=== PATIENT | male | born 1975 | race Caucasian/White ===

== ENCOUNTER 2022-10-08 12:02 | Emergency (ER) | payer OTHER, SELFPAY ==
[2022-10-08 12:09] VITALS: BP 130/52; PULSE 70; RESP 18; TEMP 36.6; O2SAT 100
--- NOTE | 2022-10-08 12:14 | ED.EAR ---
HPI - Ear Problem General Chief complaint: Ear Stated complaint: Lt Ear Irritation Source: patient Mode of arrival: ambulatory Limitations: no limitations History of Present Illness HPI Narrative: 47-year-old male presented for complaint of left ear pressure worsening over the past few days. He states he feels like it feels clogged and needs to pop. Also states it has been affecting his equilibrium, feels occasional dizziness. He denies tinnitus, ear drainage, sinus congestion, nausea, vomiting, fevers or chills. Has not taken anything for symptoms or applied any drops. MD Complaint: ear pain Related Data Allergies Allergy/AdvReac Type Severity Reaction Status Date / Time morphine AdvReac Unknown Unknown Verified 10/08/22 12:11 Review of Systems Review of Systems: CONSTITUTIONAL: Denies malaise, chills, or fever. EYES: Denies visual changes, redness, or discharge. ENT: Denies rhinorrhea, congestion, sinus pain, and sore throat. Reports ear pain CARDIOVASCULAR: Denies chest pain, palpitations, or edema. RESPIRATORY: Denies cough or dyspnea. GASTROINTESTINAL: Denies abdominal pain, nausea, vomiting, diarrhea SKIN: Denies rash or itching. MUSCULOSKELETAL: Denies myalgia. NEUROLOGIC: Denies headache. All systems reviewed & are unremarkable except as noted in HPI and below PMFSH Past Medical History Medical History (Updated 10/08/22 @ 12:25 by Jacqueline To APRN) Actinic keratosis Cervical radiculopathy GERD (gastroesophageal reflux disease) Social History Social History Smoking status: Unknown if ever smoked Comments At time of signature, agree with nursing past medical, surgical, social and family history. There is no relevant family history pertinent to the presenting complaint Exam Narrative: GENERAL: Well-appearing, well-nourished, and in no acute distress. HEAD: Normocephalic EYES: conjunctivae clear ENT: Nares clear. Mucous membranes moist. TMs pearly goldstein with dull light reflex bilaterally, Left with clear effusion and bulging TM; no tragal tenderness. Oropharynx not erythematous without lesions. Tonsils not enlarged and without exudate, no drooling, no hoarseness, no trismus, uvula midline. NECK: Supple. No lymphadenopathy CHEST: Clear to auscultation, breath sounds equal. No wheezing, rhonchi, rales, or stridor. No respiratory distress, speaks in full sentences. HEART: Regular rate and rhythm. No murmur heard. SKIN: Warm, dry, no rash. NEURO: Alert and oriented x3. PSYCH: Normal mood and affect Course Course Emergency Course: Patient is aware of diagnosis, understands and agrees to treatment plan. Anticipatory guidance given. Patient agrees to follow-up as directed and is aware of reasons to seek care at the emergency department. Portions of this record may have been created with voice recognition software Level of Care: Express Care Visit Vital Signs Vital signs: Vital Signs Temperature 97.8 F 10/08/22 12:09 Pulse Rate 70 10/08/22 12:09 Respiratory Rate 18 10/08/22 12:09 Blood Pressure 130/52 L 10/08/22 12:09 Pulse Oximetry 100 10/08/22 12:09 Oxygen Delivery Room Air 10/08/22 12:09 Temperature 97.8 F 10/08/22 12:09 Pulse Rate 70 10/08/22 12:09 Respiratory Rate 18 10/08/22 12:09 Blood Pressure 130/52 L 10/08/22 12:09 Pulse Oximetry 100 10/08/22 12:09 Oxygen Delivery Room Air 10/08/22 12:09 Reviewed Medical Decision Making MDM Narrative Medical decision making narrative: Discussed physical exam findings consistent with serous otitis media. Advised supportive measures and if symptoms do not improve he will start the antibiotic. Reviewed signs/symptoms to go to the ER. Patient is appropriate for outpatient treatment and follow-up. Differential Diagnosis Differential Diagnosis: Coronavirus, strep pharyngitis, allergic rhinitis, upper respiratory tract infection, sinusitis, rhi
== END 2022-10-08 12:20 | disposition home or self-care (01) ==
PROVIDERS: Emergency Provider Nurse Practitioner Family; PCP Family Medicine Adolescent Medicine
DX: H65.02 Acute serous otitis media, left ear (principal); K21.9 Gastro-esophageal reflux disease without esophagitis
CPT/HCPCS: 99213; G0463

== ENCOUNTER 2024-09-08 00:44 | Day surgery (SDC) | payer OTHER, SELFPAY ==
[2024-08-23 13:02] VITALS: BMI 26.6
--- OUTSIDE RECORDS SUMMARY | 2024-09-08 00:47 | XMS_ITS | Clinical Summary ---
Author Organization [facility] Address [address] [place] [address] Care Team Providers Care Apricot Washer Name Role Phone No, Physician Primary Care Provider [phone] Allergies No known active allergies Surgical History Surgery Date Site/Laterality Comments HERNIA REPAIR Medical History Medical History Date Comments Kidney stones Social History Tobacco Use Types Packs/Day Years Used Date Smoking Tobacco: Never Alcohol Use Standard Drinks/Week Comments Not Currently 0 (1 standard drink = 0.6 oz pur e alcohol) Personal Safety Answer Date Recorded Getting School Help Needed Not on file 06/04 Sex and Gender Information Value Date Recorded Sex Assigned at Not on file Legal Sex Male 5:09 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 Gender Identity Not on file Sexual Orientation Not on file Obstetrics History Last Filed Vital Signs Vital Sign Reading Time Taken Comments Blood Pressure 120/67 03/17/2021 2:30 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 Pulse 63 03/17/2021 2:30 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 Temperature 36.7 C (98.1 F) 03/16/2021 5:57 PM AUTO DESIGN CHECKER Respiratory Rate 15 03/17/2021 2:30 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 Oxygen Saturation 98% 03/17/2021 2:30 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 Inhaled Oxygen Concentration - - Weight 74.8 kg (165 lb) 03/16/2021 5:57 PM AUTO DESIGN CHECKER Height 172.7 cm (5' 8) 03/16/2021 5:57 PM AUTO DESIGN CHECKER Body Mass Index 25.09 03/16/2021 5:57 PM AUTO DESIGN CHECKER Plan of Treatment Not on file Insurance [facility] AETNA SIGNATURE AETNA SIGNATURE Care Teams Apricot Washer Relationship Specialty Start Date End Date No, Physician PCP - General 03/25/21
--- OUTSIDE RECORDS SUMMARY | 2024-09-08 00:47 | XMS_ITS | Clinical Summary ---
Author Organization [facility] Address [address] [place] [address] Care Team Providers Care Pre K Lead Teacher Name Role Phone Marcelo Lemus MD Primary Care Provider [phone] Allergies No known active allergies Medications atorvastatin (LIPITOR) 10 MG tablet Take 1 tablet (10 mg total) by mouth nightly at bedtime. Active cyclobenzaprine (FLEXERIL) 10 MG tabletIndicatio ns:Acute midline thoracic back pain Take 1 tablet (10 mg total) by mouth 3 (three) times daily as needed for Muscle Spasms. 20 tablet Active Additional Information Patient not taking.Reported on 04/06/2023 Active Problems Problem Noted Date Diagnosed Date Protrusion of cervical intervertebral disc 06/03 Cervical radiculopathy 06/03/2022 Social History Tobacco Use Types Packs/Day Years Used Date Smoking Tobacco: Never Smokeless Tobacco: Current Chew Tobacco Cessation:Ready to Q uit: No; Counseling Given: Yes Alcohol Use Standard Drinks/Week Comments Not Currently 0 (1 standard drink = 0.6 oz pur e alcohol) Sex and Gender Information Value Date Recorded Sex Assigned at Not on file Legal Sex Male 9:00 PM CDT Gender Identity Not on file Sexual Orientation Not on file Last Filed Vital Signs Vital Sign Reading Time Taken Comments Blood Pressure 112/80 04/06/2023 2:09 PM AIRPORT LOCATION MANAGER Pulse 96 04/06/2023 2:09 PM AIRPORT LOCATION MANAGER Temperature 37.2 C (98.9 F) 04/06/2023 2:09 PM AIRPORT LOCATION MANAGER Respiratory Rate 16 04/06/2023 2:09 PM AIRPORT LOCATION MANAGER Oxygen Saturation 99% 04/06/2023 2:09 PM AIRPORT LOCATION MANAGER Inhaled Oxygen Concentration - - Weight 75.8 kg (167 lb) 04/06/2023 2:09 PM AIRPORT LOCATION MANAGER Height 170.2 cm (5' 7) 04/06/2023 2:09 PM AIRPORT LOCATION MANAGER Body Mass Index 26.16 04/06/2023 2:09 PM AIRPORT LOCATION MANAGER Plan of Treatment Health Maintenance Due Date Last Done Comments Colorectal Cancer Screening Colonoscopy (10 Years) 1974 Annual Physical 1977 Hepatitis C 1992 DTaP, Tdap and Td Vaccines ( 1 - Tdap) 1993 Hepatitis B Vaccines (1 of 3 - 19+ 3-dose series) 1993 COVID-19 Vaccine (3 - 2023-2 5 season) 2023 11/18/2020, 10/21/2020 Pneumococcal Vaccine: 50+ Years (1 of 1 - PCV) 2024 Zoster Vaccines (1 of 2) 2024 PHQ-2 (Physician [place]) 03/22/2024 Meningococcal B Vaccine Aged Out No l onger eligible based on patient's age to complete this topic Meningococcal Vaccine Aged Out No alcon bhumi eligible based on patient's age to complete this topic RSV Immunizations Under 20 Months Aged Out No longer eligible b ased on patient's age to complete this topic Insurance AETNA-[facility] Care Teams Pre K Lead Teacher Relationship Specialty Start Date End Date Marcelo Lemus MD [address] [address] PCP - General FAMILY PRACTICE 11/07/19
--- OUTSIDE RECORDS SUMMARY | 2024-09-08 00:47 | XMS_ITS | Referral Summary ---
Author Organization [facility] Address [address] [place] [address] Care Team Providers Care Electric Truck Operator Name Role Phone No, Physician Primary Care Provider [phone] Allergies No known active allergies Social History Tobacco Use Types Packs/Day Years Used Date Smoking Tobacco: Never Alcohol Use Standard Drinks/Week Comments Not Currently 0 (1 standard drink = 0.6 oz pur e alcohol) Personal Safety Answer Date Recorded Getting School Help Needed Not on file 06/04 Sex and Gender Information Value Date Recorded Sex Assigned at Not on file Legal Sex Male 5:09 AM [employer] Gender Identity Not on file Sexual Orientation Not on file Last Filed Vital Signs Vital Sign Reading Time Taken Comments Blood Pressure 120/67 03/17/2021 2:30 AM COUNTY ORDINARY Pulse 63 03/17/2021 2:30 AM COUNTY ORDINARY Temperature 36.7 C (98.1 F) 03/16/2021 5:57 PM COUNTY ORDINARY Respiratory Rate 15 03/17/2021 2:30 AM COUNTY ORDINARY Oxygen Saturation 98% 03/17/2021 2:30 AM COUNTY [employer]DIN[employer] Inhaled Oxygen Concentration - - Weight 74.8 kg (165 lb) 03/16/2021 5:57 PM COUNTY [employer]DIN[employer] Height 172.7 cm (5' 8) 03/16/2021 5:57 PM COUNTY [employer]DIN[employer] Body Mass Index 25.09 03/16/2021 5:57 PM COUNTY ORDINARY Plan of Treatment Not on file Insurance [facility] AETNA SIGNATURE AETNA SIGNATURE Care Teams Electric Truck Operator Relationship Specialty Start Date End Date No, Physician PCP - General 03/25/21
--- OUTSIDE RECORDS SUMMARY | 2024-09-08 00:47 | XMS_ITS | Clinical Summary ---
Author Organization [facility] Address [address] [place] [address] Care Team Providers Care Ear Machine Operator Name Role Phone Unavailable Primary Care Provider Unavailabl e Source Comments [facility],non-owned Affiliates and Associated Physician Practices is amultiple site organization consisting of ambulatory clinics and hospital sitesin [place], [place], [place] and [place]. This disclosure is being madepursuant to the Care Everywhere program and may not contain all information available regarding this patient. Last updated 17.[facility] [employer] Social History Tobacco Use Types Packs/Day Years Used Date Smoking Tobacco: Never Assessed Sex and Gender Information Value Date Recorded Sex Assigned at Not on file Legal Sex Male 7:42 AM CDT Gender Identity Not on file Sexual Orientation Not on file Plan of Treatment Health Maintenance Due Date Last Done Comments COLOGUARD (AGES 45-75) - COL ON CA SCREENING 1974 COLON MONITORING 1974 COLONOSCOPY - COLON CA SCREENING 1974 CT COLONOGRAPHY - COLON CA SCREENING 1974 Colorectal Cancer Screening 1974 FIT - COLON CA SCREENING 1974 FLEX SIG - COLON CA SCREENING 1974 LIPID TESTING 1974 HIV SCREENING 1989 HEPATITIS C SCREENING 02/28/1992 DTAP/TDAP/TD VACCINES (1 - Tdap) 1993 HEPATITIS B VACCINE (1 of 3 - 19+ 3-dose series) 1993 COVID-19 VACCINE ( - 2023-2 5 season) 2023 PNEUMOCOCCAL VACCINE 50+ (1 of 1 - PCV) 2024 ZOSTER VACCINE (1 of 2) 2024 DEPRESSION SCREENING 03/22/2024 INFLUENZA VACCINE (Season Ended) 2024 HIB VACCINE Aged Out No longer eligi ble based on patient's age to complete this topic HPV VACCINE Aged Out No longer eligi ble based on patient's age to complete this topic MENINGOCOCCAL (Group B) VACC INE SHARED DECISION-MAKING Aged Out No longer eligibl e based on patient's age to complete this topic MENINGOCOCCAL GROUPS A/C/Y/W VACCINE Aged Out No longer eligible b ased on patient's age to complete this topic
[2024-09-08 09:49] VITALS: BP 130/91; PULSE 77; RESP 20; TEMP 36.8; O2SAT 99
--- NOTE | 2024-09-08 09:57 | P.PNAN_ITS ---
Anes - Initial Pre Proc Eval Procedure: Operation Date: 09/08/24 11:00 Proposed Procedures p Screening Colonoscopy - Glenn Morris MD Date/Time: 09/08/24 09:57 Surgeon: Glenn Morris MD Pre Op Diagnosis: Encounter for screening for malignant neoplasm of Patient Data Age: 49 Gender: M Height: 1.7 m Weight: 71.8 kg Last Vital Signs Temp 98.3 F 09/08/24 09:49 Pulse 77 09/08/24 09:49 Resp 20 09/08/24 09:49 BP 130/91 H 09/08/24 09:49 Pulse Ox 99 09/08/24 09:49 O2 Del Method Room Air 09/08/24 09:49 Allergies Allergy/AdvReac Type Severity Reaction Status Date / Time atorvastatin AdvReac Severe Other Verified 09/08/24 09:48 morphine AdvReac Unknown Unknown Verified 09/08/24 09:48 Home Medications ?Medication ?Instructions ?Recorded ?Confirmed ?Type lorazepam 1 mg tablet 1 mg PO DAILY PRN anxiety #10 tabs 04/26/24 08/23/24 Rx Patient hx anesthesia problems: none Family hx anesthesia problems: none Results Review: All pre-operative results and documents have been reviewed as part of the pre- operative evaluation. [facility] Past Medical History Medical History (Updated 04/26/24 @ 11:50 by Marcelo Lemus MD) Cervical radiculopathy GERD (gastroesophageal reflux disease) Actinic keratosis Social History Social History (Updated 11/03/22 @ 13:54 by José Manuel Quezada MA) Smoking status: Unknown if ever smoked Smokeless tobacco user: chewing tobacco Alcohol intake: current Drinks per week: 4 Alcohol use details: beer Substance use type: does not use Lack of Transportation: No Lack of Food: Never True Current Housing: I Have Housing Concerned About Future Housing: No Difficulty Paying Gas/Electric Bills: No Difficulty Paying for Meds: No Currently Unemployed: No Education: Trade/Vocational Certificate Difficulty w/ Childcare or Family Care: No Living arrangements: with family Spiritual care concerns: No Anes - Eval Final PreProcedure Day of Procedure 09/08/24 09:57 Patient weight: normal Heart: regular rate and rhythm Lungs: clear to auscultation Airway: Mallampati scale class II Neurological: alert and oriented Last oral intake: >/= 8 hours ASA classification: II Emergent: no Anesthetic plan: proceed Anesthesia type and monitoring: general GIVS and standard monitoring Results Review: All pre-operative results and documents have been reviewed as part of the pre- operative evaluation. Informed Consent: The patient's anesthetic plan and its attendant risks and benefits were discussed with the patient/family/POA. Questions were solicited and answers provided to the satisfaction of the patient/family/POA.
[2024-09-08] MEDS: LACTATED RINGERS 1,000 ML 150 ML IV CONT (10:02)
--- NOTE | 2024-09-08 11:10 | PM.HPGS ---
History of Present Illness History of Present Illness Consent: Risks, benefits, and alternatives have been discussed and questions answered. Patient agrees to proceed with procedure. Chief complaint: Encounter for screening for malignant neoplasm of Narrative: Diego Alvarado is a 49 year old male here for first screening colonoscopy Review of Systems Review of Systems: All systems reviewed & are unremarkable except as noted in HPI and below PMFSH Past Medical History Medical History (Updated 09/08/24 @ 11:10 by Glenn Morris MD) Colon cancer screening Cervical radiculopathy GERD (gastroesophageal reflux disease) Actinic keratosis Social History Social History (Updated 11/03/22 @ 13:54 by José Manuel Quezada MA) Smoking status: Unknown if ever smoked Smokeless tobacco user: chewing tobacco Alcohol intake: current Drinks per week: 4 Alcohol use details: beer Substance use type: does not use Lack of Transportation: No Lack of Food: Never True Current Housing: I Have Housing Concerned About Future Housing: No Difficulty Paying Gas/Electric Bills: No Difficulty Paying for Meds: No Currently Unemployed: No Education: Trade/Vocational Certificate Difficulty w/ Childcare or Family Care: No Living arrangements: with family Spiritual care concerns: No Meds Home Medications and Allergies Home Medications ?Medication ?Instructions ?Recorded ?Confirmed ?Type lorazepam 1 mg tablet 1 mg PO DAILY PRN anxiety #10 tabs 04/26/24 08/23/24 Rx Allergies Allergy/AdvReac Type Severity Reaction Status Date / Time atorvastatin AdvReac Severe Other Verified 09/08/24 09:48 morphine AdvReac Unknown Unknown Verified 09/08/24 09:48 Vital Signs Vital Signs - 24 hr 09/08/24 09:49 Temperature 98.3 F Pulse Rate 77 Respiratory Rate 20 Blood Pressure 130/91 H Pulse Oximetry 99 Oxygen Delivery Room Air Exam Const: General: comfortable and no acute distress HENMT: Face/Nose/Sinus: Normal nares present Eyes: General: appearance normal, both eyes and all related structures Neck: Neck: no JVD Resp: Auscultation: clear to auscultation bilaterally Cardio: Rate: regular rate Rhythm: regular rhythm GI: Inspection: non-distended GI Palp: Yes Soft to palpation Skin: General skin exam: normal color Neuro: General: gait normal Speech: normal speech Extrem: General: normal to inspection Psych: Mental Status: mental status grossly normal Assessment and Plan Assessment and plan (1) Colon cancer screening: Code(s): Z12.11 - Encounter for screening for malignant neoplasm of colon Status: Acute Assessment and Plan: colonoscopy
--- NOTE | 2024-09-08 11:23 | S_PTH ---
PATIENT: Diego Alvarado LOC: [facility]#:[id number] AGE/SX: 49/M ROOM: RE09/08/[address]: Glenn Morris MD : 1975 BED: DIS: 09/08/2024 SPEC #: [id number] RECD: 09/08/24 11:43 STATUS: DANIEL REQ #: [id number] ANI: 09/08/24 11:[address]: Glenn Morris DEPT: [facility] Surgical RECD BY: Katya Foley ENTERED: 09/08/24 11:44 SP TYPE: Surgical OTHR DR: Marcelo Lemus MD Tissues: A - Colon Polypectomy Procedures: Hematoxylin and Eosin Stain Gross and Microscopic Level 4
[2024-09-08 11:25] VITALS: BP 102/68; PULSE 86; RESP 16; O2SAT 96
[2024-09-08 11:35] VITALS: BP 103/67; PULSE 73; RESP 16; O2SAT 96
[2024-09-08 11:45] VITALS: BP 120/79; PULSE 68; O2SAT 98
== END 2024-09-08 12:02 | disposition home or self-care (01) ==
PROVIDERS: PCP Family Medicine Adolescent Medicine; Referring Provider Family Medicine Adolescent Medicine; Visit Provider Internal Medicine Gastroenterology
PROC: 0DJD8ZZ Inspection of Lower Intestinal Tract, Via Natural or Artificial Opening Endoscopic (ICD-10-PCS; CPT 45378; principal; 2024-09-08 11:00)
DX: Z12.11 Encounter for screening for malignant neoplasm of colon (principal); D12.5 Benign neoplasm of sigmoid colon; K57.30 Diverticulosis of large intestine without perforation or abscess without bleeding; K64.8 Other hemorrhoids
CPT/HCPCS: 45385; 88305; J2003; J2704; J7120